=== PATIENT | female | born 1975 | race Caucasian/White ===

== ENCOUNTER 2018-01-02 08:39 | Emergency (ER) | payer MEDICAID ==
[~2018-01-02 08:39] MED LIST: Sodium Chloride 0.9% 1,000 ML BAG ONE
[2018-01-02] MEDS ORDERED: diphenhydrAMINE 50 MG/ML VIAL ONE ×2 (08:54→09:22)
[2018-01-02] MEDS ORDERED: Famotidine In NaCl 20 mg/50 ml Premix Bag ONE (08:54)
[2018-01-02] MEDS ORDERED: Dexamethasone 10 MG/ML VIAL ONE ×2 (08:54→14:01)
[2018-01-02 09:10] LABS: Pregnancy Test - Urine (BHCG) Negative (Negative); Pregu Control Background? CLEAR/WHITE (CLR/WHITE); Pregu Control Bar Appear? YES (CONTROL BAR); Specific Gravity 1.029 (1.002-1.036)
[2018-01-02] MEDS ORDERED: EPINEPHrine 1 MG/ML AMP ONE (09:10)
[2018-01-02] MEDS ORDERED: diphenhydrAMINE 25 MG CAP ONE (14:01)
== END 2018-01-02 14:55 | disposition home or self-care (01) ==
LOC: MADERS 08:39
DX: T63.461A Toxic effect of venom of wasps, accidental (unintentional), initial encounter (principal)
CPT/HCPCS: 81025; 96361; 96372; 96374; 96375; 96376; J0171; J1100; J1200; J7050